=== PATIENT | female | born 1945 | race Caucasian/White ===

== ENCOUNTER → 2016-11-10 | Outpatient (CLI) | payer OTHER ==
--- NOTE | 2016-11-10 12:43 | REPMRS ---
Patient History The patient states she has not had a clinical breast exam in over a year. Patient is postmenopausal, has history of colorectal cancer at age 58, and has history of other cancer at age 38. Family history of colorectal cancer in father under age 50. Digital Woman Screen Mammo: November 10, 2016 - Exam #: [id number] Bilateral CC and MLO view(s) were taken. Technologist: Suellen Pretty, Technologist Prior study comparison: November 10, 2015, digital woman screen mammo performed at [facility]. October 25, 2014, digital woman screen mammo performed at [facility]. November 08, 2013, digital woman screen mammo performed at [facility]. FINDINGS: There are scattered fibroglandular densities. There has been no change in the appearance of the mammogram from the prior studies. There is a mild amount of scattered fibroglandular density which is fairly symmetric. There is no interval development of dominant mass, architectural distortion, or clustered microcalcification suggestive of malignancy. ASSESSMENT: BI-RADS/ACR category 1 mammogram. Negative. Recommendation Routine screening mammogram in 1 year (for women over age 40). This mammogram was interpreted with the aid of an FDA-approved computer-aided dectection system. Electronically Signed By: Noé Shields MD 11/10/16 [id number]
== END | disposition home or self-care (01) ==
LOC: M WHC 10:07
PROVIDERS: ATTEND Physician Assistant
DX: Z12.31 Encounter for screening mammogram for malignant neoplasm of breast (principal); Z78.0 Asymptomatic menopausal state; Z85.038 Personal history of other malignant neoplasm of large intestine

== ENCOUNTER → 2017-03-03 | Outpatient (REF) | payer OTHER ==
[2017-03-03 12:34] LABS: MEAN CORPUSCULAR HEMOGLOBIN 28.7 pg (27.0-33.0); MEAN CORPUSCULAR HGB CONC 31.9 g/dl (32.0-36.5); RED CELL DISTRIBUTION WIDTH 13.4 % (11.5-14.5); WHITE BLOOD COUNT 7.8 K/mm3 (4.0-10.0)
[2017-03-03 13:05] LABS: ALBUMIN 3.5 GM/DL (3.2-5.2); ALBUMIN/GLOBULIN RATIO 0.95 (1.00-1.93); ALKALINE PHOSPHATASE 87 U/L (45-117); ALT/SGPT 13 U/L (12-78); ANION GAP 8 MEQ/L (8-16); AST/SGOT 8 U/L (15-37); BILIRUBIN,TOTAL 0.3 MG/DL (0.2-1.0); BLOOD UREA NITROGEN 12 MG/DL (7-18); CALCIUM LEVEL 8.8 MG/DL (8.8-10.2); CARBON DIOXIDE LEVEL 30 MEQ/L (21-32); CHLORIDE LEVEL 104 MEQ/L (98-107); CHOLESTEROL LEVEL 181 MG/DL (<200); CREATININE FOR GFR 0.64 MG/DL (0.55-1.02); FREE T4 1.27 NG/DL (0.76-1.46); GLOMERULAR FILTRATION RATE > 60.0 (>39); GLUCOSE, FASTING 95 MG/DL (83-110); POTASSIUM SERUM 3.9 MEQ/L (3.5-5.1); SODIUM LEVEL 142 MEQ/L (136-145); TOTAL PROTEIN 7.2 GM/DL (6.4-8.2); TRIGLYCERIDES LEVEL 86 MG/DL (<150)
[2017-03-03 13:10] LABS: FOLATE > 24.0 NG/ML; VITAMIN B12 LEVEL 1005 PG/ML
== END ==
LOC: M SFHCADAM 08:21
PROVIDERS: ATTEND Physician Assistant
DX: I10 Essential (primary) hypertension (principal); K51.90 Ulcerative colitis, unspecified, without complications; E78.2 Mixed hyperlipidemia; E55.9 Vitamin D deficiency, unspecified; D52.0 Dietary folate deficiency anemia

== ENCOUNTER → 2017-07-23 | Outpatient (REF) | payer OTHER ==
[2017-07-23 17:28] LABS: BLOOD UREA NITROGEN 18 MG/DL (7-18); CREATININE FOR GFR 0.72 MG/DL (0.55-1.02); GLOMERULAR FILTRATION RATE > 60.0 (>39)
== END ==
LOC: M LABDRWAD 17:11 → M LAB REF 17:11
PROVIDERS: ATTEND Family Medicine
DX: I10 Essential (primary) hypertension (principal)

== ENCOUNTER → 2017-07-26 | Outpatient (CLI) | payer OTHER ==
[~2017-07-26] MED LIST: PROHANCE 279.3MG/ML 15ML VIAL (A9576) As Ordered ONE
--- NOTE | 2017-07-26 17:24 | REP ---
MR THORACIC SPINE WITHOUT AND WITH CONTRAST: HISTORY: Mid back pain. CONTRAST: ProHance 14 mL. A small central disc protrusion is present at the T6-7 level. There is minimal effacement of the thecal sac without spinal cord compression . The T6 neural foramina are patent. There is no other disc bulge or herniation. The remaining neural foramina are patent. The spinal cord is normal in signal intensity. Normal signal intensity is present in the thoracic vertebral bodies. A hemangioma is present in the L1 vertebral body. IMPRESSION: Small disc protrusion at the T6-7 level without spinal cord compression. Signed by Vidal Mijares MD 07/26/2017 05:27 P
== END ==
LOC: M RAD 13:42
PROVIDERS: ATTEND Physician Assistant
DX: M54.9 Dorsalgia, unspecified (principal)
CPT/HCPCS: 72157; A9576

== ENCOUNTER → 2017-11-15 | Outpatient (CLI) | payer OTHER | LOC: M WHC 11:50 | DX: Z12.31 Encounter for screening mammogram for malignant neoplasm of breast (principal) | CPT/HCPCS: 77067 ==

== ENCOUNTER → 2018-02-28 | Outpatient (REF) | payer OTHER ==
[2018-02-28 13:13] LABS: HEMATOCRIT 37.6 % (36.0-47.0); MEAN CORPUSCULAR HEMOGLOBIN 28.8 pg (27.0-33.0); MEAN CORPUSCULAR HGB CONC 31.9 g/dl (32.0-36.5); MEAN CORPUSCULAR VOLUME 90.4 fl (80.0-96.0); PLATELET COUNT, AUTOMATED 341 10^3/uL (150-450); RED BLOOD COUNT 4.16 10^6/uL (4.00-5.40); RED CELL DISTRIBUTION WIDTH 13.7 % (11.5-14.5); WHITE BLOOD COUNT 9.1 10^3/uL (4.0-10.0)
[2018-02-28 13:39] LABS: ALBUMIN 3.5 GM/DL (3.2-5.2); ALKALINE PHOSPHATASE 87 U/L (45-117); ALT/SGPT 20 U/L (12-78); ANION GAP 5 MEQ/L (8-16); AST/SGOT 13 U/L (7-37); BILIRUBIN,TOTAL 0.4 MG/DL (0.2-1.0); BLOOD UREA NITROGEN 16 MG/DL (7-18); CALCIUM LEVEL 9.5 MG/DL (8.8-10.2); CARBON DIOXIDE LEVEL 31 MEQ/L (21-32); CHLORIDE LEVEL 105 MEQ/L (98-107); CHOLESTEROL LEVEL 181 MG/DL (<200); CREATININE FOR GFR 0.68 MG/DL (0.55-1.30); GLOMERULAR FILTRATION RATE > 60.0 (>39); GLUCOSE, FASTING 91 MG/DL (70-100); HDL CHOLESTEROL 58 MG/DL (>40); LDL CHOLESTEROL 106.6 MG/DL (<100); NON-HDL-C 123 MG/DL; POTASSIUM SERUM 4.3 MEQ/L (3.5-5.1); SODIUM LEVEL 141 MEQ/L (136-145); TOTAL PROTEIN 7.4 GM/DL (6.4-8.2); TRIGLYCERIDES LEVEL 82 MG/DL (<150)
== END ==
LOC: M SFHCADAM 07:53
DX: E78.2 Mixed hyperlipidemia (principal); I10 Essential (primary) hypertension; M15.9 Polyosteoarthritis, unspecified
CPT/HCPCS: 80053

== ENCOUNTER → 2018-11-02 | Outpatient (CLI) | payer MEDICARE, OTHER ==
--- NOTE | 2018-11-02 13:19 | REPMRS ---
Patient History The patient states she had a clinical breast exam in 02/2018. Patient has history of colorectal cancer at age 58 and has history of cervical cancer at age 38. Family history of colorectal cancer under age 50 in father. No Hormone Replacement Therapy Digital Woman Screen Mammo: November 02, 2018 - Exam #: [id number] Bilateral CC and MLO view(s) were taken. Technologist: Suellen Pretty, Technologist Prior study comparison: November 15, 2017, digital woman screen mammo performed at [facility]. November 10, 2016, digital woman screen mammo performed at [facility]. November 10, 2015, digital woman screen mammo performed at [facility]. FINDINGS: There are scattered fibroglandular densities. There has been no change in the appearance of the mammogram from the prior studies. There is a mild amount of scattered fibroglandular density which is fairly symmetric. There is no interval development of dominant mass, architectural distortion, or clustered microcalcification suggestive of malignancy. 3-D tomosynthesis shows no additional findings. Assessment: BI-RADS/ACR category 1 mammogram. Negative. Recommendation Routine screening mammogram of both breasts in 1 year (for women over age 40). This patient's Lifetime Breast Cancer RIsk is estimated at 3.4 %. This mammogram was interpreted with the aid of an FDA-approved computer-aided dectection system. Electronically Signed By: Noé Shields MD 11/02/18 [id number]
== END ==
LOC: M WHC 10:39
PROVIDERS: ATTEND Physician Assistant
DX: Z12.31 Encounter for screening mammogram for malignant neoplasm of breast (principal); Z85.048 Personal history of other malignant neoplasm of rectum, rectosigmoid junction, and anus; Z85.41 Personal history of malignant neoplasm of cervix uteri; Z80.0 Family history of malignant neoplasm of digestive organs

== ENCOUNTER → 2019-02-15 | Outpatient (REF) | payer MEDICARE, OTHER ==
[2019-02-15 12:58] LABS: HEMATOCRIT 37.9 % (36.0-47.0); MEAN CORPUSCULAR HEMOGLOBIN 28.7 pg (27.0-33.0); MEAN CORPUSCULAR HGB CONC 31.7 g/dl (32.0-36.5); MEAN CORPUSCULAR VOLUME 90.7 fl (80.0-96.0); PLATELET COUNT, AUTOMATED 379 10^3/uL (150-450); RED BLOOD COUNT 4.18 10^6/uL (4.00-5.40); WHITE BLOOD COUNT 6.2 10^3/uL (4.0-10.0)
[2019-02-15 13:24] LABS: FOLATE > 24.0 NG/ML; VITAMIN B12 LEVEL 1509 PG/ML
[2019-02-15 13:31] LABS: ALBUMIN 3.4 GM/DL (3.2-5.2); ALT/SGPT 16 U/L (12-78); BILIRUBIN,TOTAL 0.2 MG/DL (0.2-1.0); BLOOD UREA NITROGEN 15 MG/DL (7-18); CALCIUM LEVEL 9.3 MG/DL (8.8-10.2); CARBON DIOXIDE LEVEL 30 MEQ/L (21-32); CHLORIDE LEVEL 105 MEQ/L (98-107); CHOLESTEROL LEVEL 184 MG/DL (<200); CHOLESTEROL RISK RATIO 3.607 (<5); CREATININE FOR GFR 0.67 MG/DL (0.55-1.30); FREE T4 1.36 NG/DL (0.76-1.46); GLOMERULAR FILTRATION RATE > 60.0 (>39); GLUCOSE, FASTING 85 MG/DL (70-100); HDL CHOLESTEROL 51 MG/DL (>40); LDL CHOLESTEROL 115 MG/DL (<100); NON-HDL-C 133 MG/DL; POTASSIUM SERUM 4.1 MEQ/L (3.5-5.1); SODIUM LEVEL 140 MEQ/L (136-145); TOTAL PROTEIN 7.3 GM/DL (6.4-8.2); TRIGLYCERIDES LEVEL 88 MG/DL (<150)
== END ==
LOC: M SFHCADAM 08:22
PROVIDERS: ATTEND Physician Assistant
DX: K21.9 Gastro-esophageal reflux disease without esophagitis (principal); E78.2 Mixed hyperlipidemia; I10 Essential (primary) hypertension; D52.8 Other folate deficiency anemias

== ENCOUNTER 2019-08-30 15:17 | Emergency (ER) | payer MEDICARE ==
[~2019-08-30] VITALS: Ht 162.6 cm; Wt 76.5 kg
[2019-08-30] MEDS ORDERED: FOLI1TAB11 (15:25)
[2019-08-30] MEDS ORDERED: PRAV10TA3 (15:25)
[2019-08-30 16:29] LABS: BASO # 0.1 10^3/uL (0.0-0.2); BASO % 0.7 % (0.0-1.0); EOS # 0.3 10^3/uL (0.0-0.5); EOS % 3.8 % (0.0-3.0); HEMOGLOBIN 12.4 g/dl (12.0-15.5); LYMPH # 2.2 10^3/uL (1.5-5.0); LYMPH % 25.9 % (24.0-44.0); MEAN CORPUSCULAR HEMOGLOBIN 28.8 pg (27.0-33.0); MONO # 0.7 10^3/uL (0.0-0.8); MONO % 7.9 % (0.0-5.0); NEUTROPHILS # 5.3 10^3/uL (1.5-8.5); NEUTROPHILS % 61.5 % (36.0-66.0); PLATELET COUNT, AUTOMATED 360 10^3/uL (150-450); WHITE BLOOD COUNT 8.6 10^3/uL (4.0-10.0)
[2019-08-30] MEDS ORDERED: NS 1,000 ML IV SCH (16:45)
[2019-08-30 17:08] LABS: ALBUMIN 3.6 GM/DL (3.2-5.2); ALT/SGPT 19 U/L (12-78); BILIRUBIN,TOTAL 0.3 MG/DL (0.2-1.0); BLOOD UREA NITROGEN 16 MG/DL (7-18); CALCIUM LEVEL 9.9 MG/DL (8.8-10.2); CARBON DIOXIDE LEVEL 30 MEQ/L (21-32); CHLORIDE LEVEL 104 MEQ/L (98-107); CK-MB VALUE MASS < 1.0 NG/ML (<3.6); CPK CREATINE PHOSPHOKINASE 31 U/L (26-192); CREATININE FOR GFR 0.65 MG/DL (0.55-1.30); GLOMERULAR FILTRATION RATE > 60.0 (>39); GLUCOSE, FASTING 87 MG/DL (70-100); MAGNESIUM LEVEL 1.8 MG/DL (1.8-2.4); MB/CK RELATIVE INDEX 3.23 (< OR =4); POTASSIUM SERUM 4.3 MEQ/L (3.5-5.1); SODIUM LEVEL 141 MEQ/L (136-145); TOTAL PROTEIN 7.5 GM/DL (6.4-8.2); TROPONIN I < 0.02 NG/ML (< 0.10)
--- NOTE | 2019-08-30 17:09 | REP ---
CT brain: 08/30/2019. Indication: Dizziness. Comparison: None. Technique: Unenhanced axial CT images of the brain were obtained from skull base to vertex. Findings: There is no acute intracranial hemorrhage, acute cortical infarction, mass effect or hydrocephalous. Impression: No acute intracranial process. Electronically Signed by Paul White DO 08/30/2019 05:01 P
--- NOTE | 2019-08-30 17:17 | REP ---
Two-view chest: 08/30/2019. New indication: Dizziness. Comparison: 04/03/2014. Findings: There is no air space consolidation, pleural effusion or pneumothorax. Chronic right rib deformities are noted. The cardiomediastinal silhouette is unremarkable. Impression: No acute cardiopulmonary process. Electronically Signed by Paul White DO 08/30/2019 05:09 P
--- NOTE | 2019-08-30 18:36 | ECGEPIP ---
[facility] - ED Test Date: 2019-08-30 Pat Name: KEYLA ROA Department: Room: - Gender: Female Dental Hygienist: MICHI : 1945 Requested By: REJI Carl Order Number: [id number] Reading MD: Jodi Olsen Measurements Intervals [place] Rate: 88 P: 66 MI: 205 QRS: 40 QRSD: 98 T: 60 QT: 353 QTc: 429 Interpretive Statements SINUS RHYTHM NO PRIOR Electronically Signed on 08-30-2019 18:35:49 EST by Jodi Olsen
[2019-08-30 19:18] VITALS: BP 165/82
== END 2019-08-30 19:38 | disposition home or self-care (01) ==
LOC: M ED 15:17
DX: R25.2 Cramp and spasm (principal); R42 Dizziness and giddiness; E78.00 Pure hypercholesterolemia, unspecified; Z88.4 Allergy status to anesthetic agent; Z88.8 Allergy status to other drugs, medicaments and biological substances; Z88.1 Allergy status to other antibiotic agents; Z79.899 Other long term (current) drug therapy

== ENCOUNTER → 2020-03-10 | Outpatient (REF) | payer MEDICARE ==
[~2020-03-10] MED LIST changes: +FOLI1TAB11; +PRAV10TA3; -PROHANCE 279.3MG/ML 15ML VIAL (A9576) As Ordered ONE
[2020-03-10 12:45] LABS: HEMATOCRIT 40.2 % (36.0-47.0); HEMOGLOBIN 12.6 g/dl (12.0-15.5); MEAN CORPUSCULAR HEMOGLOBIN 28.6 pg (27.0-33.0); MEAN CORPUSCULAR HGB CONC 31.3 g/dl (32.0-36.5); MEAN CORPUSCULAR VOLUME 91.4 fl (80.0-96.0); PLATELET COUNT, AUTOMATED 389 10^3/uL (150-450); WHITE BLOOD COUNT 7.3 10^3/uL (4.0-10.0)
[2020-03-10 12:51] LABS: ALBUMIN 3.7 GM/DL (3.2-5.2); ALT/SGPT 19 U/L (12-78); BILIRUBIN,TOTAL 0.4 MG/DL (0.2-1.0); BLOOD UREA NITROGEN 10 MG/DL (7-18); CARBON DIOXIDE LEVEL 31 MEQ/L (21-32); CHLORIDE LEVEL 105 MEQ/L (98-107); CHOLESTEROL LEVEL 196 MG/DL (<200); CHOLESTEROL RISK RATIO 3.322 (<5); CREATININE FOR GFR 0.69 MG/DL (0.55-1.30); GLOMERULAR FILTRATION RATE > 60.0 (>39); GLUCOSE, FASTING 88 MG/DL (70-100); HDL CHOLESTEROL 59 MG/DL (>40); LDL CHOLESTEROL 117 MG/DL (<100); NON-HDL-C 137 MG/DL; POTASSIUM SERUM 4.8 MEQ/L (3.5-5.1); SODIUM LEVEL 143 MEQ/L (136-145); TOTAL PROTEIN 7.8 GM/DL (6.4-8.2); TRIGLYCERIDES LEVEL 101 MG/DL (<150)
[2020-03-10 13:10] LABS: MALB URINE SIEMENS 13.9 MG/L; MAU/CREAT RATIO 8.7 MCG/MG (0.0-30.0)
[2020-03-11 10:04] LABS: FOLATE > 24.0 NG/ML; VITAMIN B12 LEVEL 1563 PG/ML
== END ==
LOC: M SFHCADAM 08:21
PROVIDERS: ATTEND Physician Assistant
DX: E78.2 Mixed hyperlipidemia (principal); I10 Essential (primary) hypertension; K21.9 Gastro-esophageal reflux disease without esophagitis; K51.90 Ulcerative colitis, unspecified, without complications

== ENCOUNTER → 2020-08-27 | Outpatient (REF) | payer MEDICARE ==
[2020-08-27 12:49] LABS: HEMATOCRIT 39.6 % (36.0-47.0); HEMOGLOBIN 12.2 g/dl (12.0-15.5); MEAN CORPUSCULAR HEMOGLOBIN 28.4 pg (27.0-33.0); MEAN CORPUSCULAR HGB CONC 30.8 g/dl (32.0-36.5); MEAN CORPUSCULAR VOLUME 92.3 fl (80.0-96.0); PLATELET COUNT, AUTOMATED 371 10^3/uL (150-450); RED BLOOD COUNT 4.29 10^6/uL (4.00-5.40); WHITE BLOOD COUNT 7.7 10^3/uL (4.0-10.0)
[2020-08-27 13:20] LABS: ALBUMIN 3.8 GM/DL (3.2-5.2); ALT/SGPT 21 U/L (12-78); BILIRUBIN,TOTAL 0.4 MG/DL (0.2-1.0); BLOOD UREA NITROGEN 15 MG/DL (7-18); CALCIUM LEVEL 9.9 MG/DL (8.8-10.2); CARBON DIOXIDE LEVEL 31 MEQ/L (21-32); CHLORIDE LEVEL 103 MEQ/L (98-107); CHOLESTEROL LEVEL 194 MG/DL (<200); CHOLESTEROL RISK RATIO 3.079 (<5); CREATININE FOR GFR 0.67 MG/DL (0.55-1.30); FREE T4 1.33 NG/DL (0.76-1.46); GLOMERULAR FILTRATION RATE > 60.0 (>39); GLUCOSE, FASTING 81 MG/DL (70-100); HDL CHOLESTEROL 63 MG/DL (>40); LDL CHOLESTEROL 114 MG/DL (<100); NON-HDL-C 131 MG/DL; POTASSIUM SERUM 4.8 MEQ/L (3.5-5.1); SODIUM LEVEL 140 MEQ/L (136-145); TOTAL PROTEIN 7.4 GM/DL (6.4-8.2); TRIGLYCERIDES LEVEL 83 MG/DL (<150)
== END ==
LOC: M SFHCADAM 08:16
PROVIDERS: ATTEND Physician Assistant
DX: I10 Essential (primary) hypertension (principal); E78.2 Mixed hyperlipidemia; M15.9 Polyosteoarthritis, unspecified; K21.9 Gastro-esophageal reflux disease without esophagitis

== ENCOUNTER → 2021-08-19 | Outpatient (REF) | payer MEDICARE ==
[2021-08-19 13:23] LABS: HEMATOCRIT 42.1 % (36.0-47.0); HEMOGLOBIN 13.1 g/dl (12.0-15.5); MEAN CORPUSCULAR HGB CONC 31.1 g/dl (32.0-36.5); MEAN CORPUSCULAR VOLUME 93.1 fl (80.0-96.0); PLATELET COUNT, AUTOMATED 399 10^3/uL (150-450); RED BLOOD COUNT 4.52 10^6/uL (4.00-5.40); WHITE BLOOD COUNT 8.6 10^3/uL (4.0-10.0)
[2021-08-19 14:00] LABS: ALBUMIN 3.7 GM/DL (3.2-5.2); ALT/SGPT 17 U/L (12-78); BILIRUBIN,TOTAL 0.4 MG/DL (0.2-1.0); BLOOD UREA NITROGEN 16 MG/DL (7-18); CALCIUM LEVEL 10.1 MG/DL (8.8-10.2); CARBON DIOXIDE LEVEL 31 MEQ/L (21-32); CHLORIDE LEVEL 103 MEQ/L (98-107); CHOLESTEROL LEVEL 223 MG/DL (<200); CREATININE FOR GFR 0.64 MG/DL (0.55-1.30); FREE T4 1.28 NG/DL (0.76-1.46); GLOMERULAR FILTRATION RATE > 60.0 (>39); GLUCOSE, FASTING 107 MG/DL (70-100); HDL CHOLESTEROL 65 MG/DL (>40); LDL CHOLESTEROL 138 MG/DL (<100); NON-HDL-C 158 MG/DL; POTASSIUM SERUM 4.3 MEQ/L (3.5-5.1); SODIUM LEVEL 140 MEQ/L (136-145); TOTAL PROTEIN 7.4 GM/DL (6.4-8.2); TRIGLYCERIDES LEVEL 99 MG/DL (<150)
[2021-08-19 14:02] LABS: TOTAL 25(OH) VITAMIN D 57.3 NG/ML (30.0-100.0)
[2021-08-19 14:03] LABS: FOLATE > 24.0 NG/ML; VITAMIN B12 LEVEL 1369 PG/ML
== END ==
LOC: M SFHCADAM 08:30
PROVIDERS: ATTEND Physician Assistant
DX: M54.6 Pain in thoracic spine (principal); I10 Essential (primary) hypertension; E55.9 Vitamin D deficiency, unspecified; K21.9 Gastro-esophageal reflux disease without esophagitis; E78.2 Mixed hyperlipidemia; K51.90 Ulcerative colitis, unspecified, without complications

== ENCOUNTER 2022-04-14 18:50 | Inpatient (IN) | payer MEDICARE ==
[~2022-04-14] VITALS: Ht 162.6 cm; Wt 64.3 kg
[2022-04-14] MEDS ORDERED: ISOVUE-370 76% 100ML VIAL As Ordered ONE (20:04)
[2022-04-14 20:14] LABS: BASO % 0.4 % (0.0-1.0); EOS # 0.3 10^3/uL (0.0-0.5); EOS % 2.9 % (0.0-3.0); HEMATOCRIT 41.5 % (36.0-47.0); HEMOGLOBIN 13.3 g/dl (12.0-15.5); LYMPH # 1.8 10^3/uL (1.5-5.0); LYMPH % 15.6 % (24.0-44.0); MEAN CORPUSCULAR HEMOGLOBIN 29.5 pg (27.0-33.0); MONO # 0.8 10^3/uL (0.0-0.8); MONO % 6.6 % (2.0-8.0); NEUTROPHILS # 8.5 10^3/uL (1.5-8.5); NEUTROPHILS % 74.1 % (36.0-66.0); PLATELET COUNT, AUTOMATED 361 10^3/uL (150-450); RED BLOOD COUNT 4.51 10^6/uL (4.00-5.40); WHITE BLOOD COUNT 11.4 10^3/uL (4.0-10.0)
[2022-04-14 20:26] LABS: PARTIAL THROMBOPLASTIN TIME 30.4 SECONDS (25.9-37.0)
[2022-04-14 20:32] LABS: INR 0.92; PROTHROMBIN TIME 12.8 SECONDS (12.7-14.5)
[2022-04-14 20:45] LABS: CK-MB VALUE MASS < 1.0 NG/ML (<3.6); CPK CREATINE PHOSPHOKINASE 69 U/L (26-192); MB/CK RELATIVE INDEX 1.45 (< OR =4)
[2022-04-14] MEDS ORDERED: ASPIRIN 81 MG CHEW TABLET PO ONE (21:20)
[2022-04-14 22:52] LABS: RSV AMPLIFICATION NEGATIVE (NEGATIVE)
[2022-04-14] MEDS ORDERED: NS 1,000 ML IV SCH (23:10)
[2022-04-15] MEDS ORDERED: PRAV10TA4 PO ×2 (01:11→11:48)
[2022-04-15] MEDS ORDERED: FISH1000 PO (01:11)
[2022-04-15] MEDS ORDERED: CALTTAB6 PO (01:11)
[2022-04-15] MEDS ORDERED: FOLI1TAB11 PO (01:11)
[2022-04-15] MEDS ORDERED: ACET-897 PO (01:11)
[2022-04-15] MEDS ORDERED: HOME MED LIST COMPLETE! XX SCH (01:15)
[2022-04-15 01:34] VITALS: BP 169/77
[2022-04-15 02:09] VITALS: BP 169/77
[2022-04-15 04:00] VITALS: BP 127/65
[2022-04-15 05:15] LABS: HEMATOCRIT 40.1 % (36.0-47.0); HEMOGLOBIN 12.8 g/dl (12.0-15.5); MEAN CORPUSCULAR HEMOGLOBIN 28.7 pg (27.0-33.0); MEAN CORPUSCULAR HGB CONC 31.9 g/dl (32.0-36.5); MEAN CORPUSCULAR VOLUME 89.9 fl (80.0-96.0); PLATELET COUNT, AUTOMATED 357 10^3/uL (150-450); RED BLOOD COUNT 4.46 10^6/uL (4.00-5.40); WHITE BLOOD COUNT 10.7 10^3/uL (4.0-10.0)
[2022-04-15 05:40] LABS: ALBUMIN 3.4 GM/DL (3.2-5.2); ALT/SGPT 10 U/L (12-78); BILIRUBIN,TOTAL 0.4 MG/DL (0.2-1.0); BLOOD UREA NITROGEN 13 MG/DL (7-18); CALCIUM LEVEL 9.4 MG/DL (8.8-10.2); CARBON DIOXIDE LEVEL 26 MEQ/L (21-32); CHLORIDE LEVEL 104 MEQ/L (98-107); CREATININE FOR GFR 0.59 MG/DL (0.55-1.30); GLOMERULAR FILTRATION RATE > 60.0 (>39); GLUCOSE, FASTING 96 MG/DL (70-100); SODIUM LEVEL 139 MEQ/L (136-145); TOTAL PROTEIN 7.1 GM/DL (6.4-8.2)
[2022-04-15 06:00] VITALS: BP 158/73
[2022-04-15] MEDS: HEPARIN SOD (PORCINE) 5000UNITS/ML 1ML VIAL/SYRINGE SC SCH ×2 (06:19→14:00)
[2022-04-15 08:00] VITALS: BP 134/68
[2022-04-15] MEDS ORDERED: ASPIRIN 81 MG CHEW TABLET PO SCH (09:00)
[2022-04-15] MEDS ORDERED: ASPI81CH8 PO (11:48)
[2022-04-15 12:00] VITALS: BP 137/82
[2022-04-15 13:29] LABS: THYROID STIMULATING HORMONE 0.879 uIU/ML (0.358-3.740)
[2022-04-15 13:34] LABS: VITAMIN B12 LEVEL 1455 PG/ML (247-911)
[2022-04-15 13:36] LABS: FOLATE > 24.0 NG/ML (>5.4)
[2022-04-15] MEDS ORDERED: ATORVASTATIN 20 MG TAB PO SCH (21:00)
== END 2022-04-15 14:47 | disposition home or self-care (01) | DRG 69 ==
LOC: M ED 18:50 → M ED INP 23:07 → M PCU 04-15 01:20
PROVIDERS: ADMIT Family Medicine; ATTEND Internal Medicine Nephrology
DX: G45.9 Transient cerebral ischemic attack, unspecified (principal); R47.1 Dysarthria and anarthria; I27.20 Pulmonary hypertension, unspecified; R91.8 Other nonspecific abnormal finding of lung field; E78.5 Hyperlipidemia, unspecified; Z87.891 Personal history of nicotine dependence; Z79.899 Other long term (current) drug therapy; Z88.8 Allergy status to other drugs, medicaments and biological substances; Z88.1 Allergy status to other antibiotic agents; Z88.4 Allergy status to anesthetic agent

== ENCOUNTER 2022-04-21 22:20 | Emergency (ER) | payer MEDICARE ==
[~2022-04-21] VITALS: Ht 162.6 cm; Wt 74.1 kg
[~2022-04-21 22:20] MED LIST changes: +ACET-897 PO; +ASPI81CH8 PO; +CALTTAB6 PO; +FISH1000 PO; +FOLI1TAB11 PO; +PRAV10TA4 PO
[2022-04-22 01:37] LABS: BASO % 0.4 % (0.0-1.0); EOS # 0.2 10^3/uL (0.0-0.5); EOS % 2.1 % (0.0-3.0); HEMATOCRIT 38.5 % (36.0-47.0); HEMOGLOBIN 12.4 g/dl (12.0-15.5); LYMPH # 1.5 10^3/uL (1.5-5.0); LYMPH % 13.8 % (24.0-44.0); MEAN CORPUSCULAR HEMOGLOBIN 29.4 pg (27.0-33.0); MEAN CORPUSCULAR HGB CONC 32.2 g/dl (32.0-36.5); MEAN CORPUSCULAR VOLUME 91.2 fl (80.0-96.0); MONO # 0.8 10^3/uL (0.0-0.8); MONO % 7.3 % (2.0-8.0); NEUTROPHILS # 8.5 10^3/uL (1.5-8.5); PLATELET COUNT, AUTOMATED 357 10^3/uL (150-450); RED BLOOD COUNT 4.22 10^6/uL (4.00-5.40); WHITE BLOOD COUNT 11.2 10^3/uL (4.0-10.0)
[2022-04-22 02:11] LABS: ALBUMIN 3.4 GM/DL (3.2-5.2); ALT/SGPT 11 U/L (12-78); BILIRUBIN,TOTAL 0.3 MG/DL (0.2-1.0); BLOOD UREA NITROGEN 14 MG/DL (7-18); CALCIUM LEVEL 9.8 MG/DL (8.8-10.2); CARBON DIOXIDE LEVEL 28 MEQ/L (21-32); CHLORIDE LEVEL 100 MEQ/L (98-107); CREATININE FOR GFR 0.63 MG/DL (0.55-1.30); GLOMERULAR FILTRATION RATE > 60.0 (>39); GLUCOSE, FASTING 112 MG/DL (70-100); LIPASE 107 U/L (73-393); POTASSIUM SERUM 3.6 MEQ/L (3.5-5.1); SODIUM LEVEL 135 MEQ/L (136-145); TOTAL PROTEIN 7.1 GM/DL (6.4-8.2)
[2022-04-22] MEDS ORDERED: NITROFURANTOIN (MACROBID) 100 MG CAP PO ONE (02:35)
[2022-04-22] MEDS ORDERED: METOPROLOL TART 25 MG TABLET PO ONE (02:35)
[2022-04-22] MEDS ORDERED: MACR100C43 PO (02:40)
[2022-04-22] MEDS ORDERED: METO1TAB87 PO (02:40)
[2022-04-22 03:04] VITALS: BP 144/78
[2022-04-22 03:17] VITALS: BP 132/73
== END 2022-04-22 03:27 | disposition home or self-care (01) ==
LOC: M ED 22:20
DX: I10 Essential (primary) hypertension (principal); N39.0 Urinary tract infection, site not specified; Z88.8 Allergy status to other drugs, medicaments and biological substances; Z79.82 Long term (current) use of aspirin; Z79.899 Other long term (current) drug therapy

== ENCOUNTER 2022-04-29 12:30 | Emergency (ER) | payer MEDICARE ==
[~2022-04-29] VITALS: Ht 162.6 cm; Wt 70.9 kg
[~2022-04-29 12:30] MED LIST changes: +MACR100C43 PO; +METO1TAB87 PO
[2022-04-29 16:12] LABS: BASO # 0.1 10^3/uL (0.0-0.2); BASO % 0.5 % (0.0-1.0); EOS # 0.3 10^3/uL (0.0-0.5); EOS % 2.9 % (0.0-3.0); HEMATOCRIT 39.8 % (36.0-47.0); HEMOGLOBIN 12.8 g/dl (12.0-15.5); LYMPH # 2.1 10^3/uL (1.5-5.0); LYMPH % 20.8 % (24.0-44.0); MEAN CORPUSCULAR HEMOGLOBIN 29.4 pg (27.0-33.0); MEAN CORPUSCULAR HGB CONC 32.2 g/dl (32.0-36.5); MEAN CORPUSCULAR VOLUME 91.3 fl (80.0-96.0); MONO # 0.7 10^3/uL (0.0-0.8); NEUTROPHILS # 6.9 10^3/uL (1.5-8.5); NEUTROPHILS % 68.4 % (36.0-66.0); PLATELET COUNT, AUTOMATED 401 10^3/uL (150-450); RED BLOOD COUNT 4.36 10^6/uL (4.00-5.40); WHITE BLOOD COUNT 10.1 10^3/uL (4.0-10.0)
[2022-04-29 16:42] LABS: ALBUMIN 3.5 GM/DL (3.2-5.2); ALT/SGPT 20 U/L (12-78); BILIRUBIN,TOTAL 0.3 MG/DL (0.2-1.0); BLOOD UREA NITROGEN 11 MG/DL (7-18); CARBON DIOXIDE LEVEL 26 MEQ/L (21-32); CHLORIDE LEVEL 103 MEQ/L (98-107); CREATININE FOR GFR 0.55 MG/DL (0.55-1.30); GLOMERULAR FILTRATION RATE > 60.0 (>39); GLUCOSE, FASTING 87 MG/DL (70-100); POTASSIUM SERUM 4.5 MEQ/L (3.5-5.1); SODIUM LEVEL 138 MEQ/L (136-145); TOTAL PROTEIN 7.1 GM/DL (6.4-8.2)
[2022-04-29] MEDS ORDERED: PROHANCE 279.3MG/ML 15ML VIAL As Ordered ONE (22:24)
[2022-04-30 00:30] VITALS: BP 149/79
== END 2022-04-30 02:08 | disposition home or self-care (01) ==
LOC: M ED 12:30
DX: R42 Dizziness and giddiness (principal); E78.5 Hyperlipidemia, unspecified; Z88.1 Allergy status to other antibiotic agents; Z88.4 Allergy status to anesthetic agent; Z88.8 Allergy status to other drugs, medicaments and biological substances; Z79.899 Other long term (current) drug therapy; Z79.82 Long term (current) use of aspirin
CPT/HCPCS: 36415; 70450; 70543; 70551; 80053; 81001; 85025; 93005; 99284; A9576

== ENCOUNTER → 2022-05-14 | Outpatient (CLI) | payer MEDICARE ==
[~2022-05-14] MED LIST changes: +ISOVUE-370 76% 25ML SYRINGE As Ordered ONE
== END ==
LOC: M RAD 16:56
PROVIDERS: ATTEND Physician Assistant
DX: R91.8 Other nonspecific abnormal finding of lung field (principal); R06.3 Periodic breathing; Z87.891 Personal history of nicotine dependence; J47.9 Bronchiectasis, uncomplicated
CPT/HCPCS: 71260; Q9967

== ENCOUNTER → 2022-06-08 | Outpatient (CLI) | payer MEDICARE ==
[~2022-06-08] MED LIST changes: -ISOVUE-370 76% 25ML SYRINGE As Ordered ONE
[2022-06-08 11:26] LABS: BLOOD UREA NITROGEN 13 MG/DL (7-18); CREATININE FOR GFR 0.61 MG/DL (0.55-1.30); GLOMERULAR FILTRATION RATE > 60.0 (>39)
== END ==
LOC: M LAB 09:47
PROVIDERS: ATTEND Physician Assistant Medical
DX: R22.1 Localized swelling, mass and lump, neck (principal)

== ENCOUNTER → 2022-06-10 | Outpatient (CLI) | payer MEDICARE ==
[~2022-06-10] MED LIST changes: +ISOVUE-370 76% 25ML SYRINGE As Ordered ONE
== END ==
LOC: M RAD 15:01
PROVIDERS: ATTEND Otolaryngology
DX: R22.1 Localized swelling, mass and lump, neck (principal)
CPT/HCPCS: 70491; Q9967

== ENCOUNTER → 2022-08-24 | Outpatient (REF) | payer MEDICARE ==
[~2022-08-24] MED LIST changes: -ISOVUE-370 76% 25ML SYRINGE As Ordered ONE
[2022-08-24 14:15] LABS: HEMATOCRIT 40.8 % (36.0-47.0); HEMOGLOBIN 12.6 g/dl (12.0-15.5); MEAN CORPUSCULAR HGB CONC 30.9 g/dl (32.0-36.5); PLATELET COUNT, AUTOMATED 403 10^3/uL (150-450); RED BLOOD COUNT 4.34 10^6/uL (4.00-5.40)
[2022-08-24 15:54] LABS: ALBUMIN 3.5 GM/DL (3.2-5.2); ALT/SGPT 16 U/L (12-78); BILIRUBIN,TOTAL 0.3 MG/DL (0.2-1.0); BLOOD UREA NITROGEN 15 MG/DL (7-18); CALCIUM LEVEL 9.9 MG/DL (8.8-10.2); CARBON DIOXIDE LEVEL 32 MEQ/L (21-32); CHLORIDE LEVEL 102 MEQ/L (98-107); CREATININE FOR GFR 0.69 MG/DL (0.55-1.30); FREE T4 1.35 NG/DL (0.76-1.46); GLOMERULAR FILTRATION RATE > 60.0 (>39); GLUCOSE, FASTING 86 MG/DL (70-100); POTASSIUM SERUM 4.9 MEQ/L (3.5-5.1); SODIUM LEVEL 141 MEQ/L (136-145); THYROID STIMULATING HORMONE 0.717 uIU/ML (0.358-3.740); TOTAL PROTEIN 7.2 GM/DL (6.4-8.2)
[2022-08-24 20:08] LABS: HEMOGLOBIN A1c 5.4 %
== END ==
LOC: M SFHCADAM 08:33
PROVIDERS: ATTEND Physician Assistant
DX: I10 Essential (primary) hypertension (principal); K21.9 Gastro-esophageal reflux disease without esophagitis; E78.2 Mixed hyperlipidemia; K51.90 Ulcerative colitis, unspecified, without complications; K59.00 Constipation, unspecified

== ENCOUNTER → 2022-09-30 | Outpatient (REF) | payer MEDICARE ==
[2022-09-30 14:46] LABS: BLOOD UREA NITROGEN 18 MG/DL (9-23); CALCIUM LEVEL 10.6 MG/DL (8.3-10.6); CARBON DIOXIDE LEVEL 27 MMOL/L (20-31); CHLORIDE LEVEL 101 MMOL/L (98-107); CREATININE FOR GFR 0.66 MG/DL (0.55-1.30); GLOMERULAR FILTRATION RATE > 60.0 (>39); GLUCOSE, FASTING 96 MG/DL (74-106); POTASSIUM SERUM 5.4 MMOL/L (3.5-5.1); SODIUM LEVEL 140 MMOL/L (136-145)
== END ==
LOC: M SFHCADAM 11:45
PROVIDERS: ATTEND Physician Assistant
DX: R91.1 Solitary pulmonary nodule (principal)

== ENCOUNTER → 2022-12-08 | Outpatient (REF) | payer MEDICARE ==
[2022-12-08 15:42] LABS: BLOOD UREA NITROGEN 16 MG/DL (9-23); CREATININE FOR GFR 0.61 MG/DL (0.55-1.30); GLOMERULAR FILTRATION RATE > 60.0 (>39)
== END ==
LOC: M LABDRWAD 14:05
PROVIDERS: ATTEND Physician Assistant Medical
DX: R91.1 Solitary pulmonary nodule (principal)

== ENCOUNTER → 2022-12-15 | Outpatient (CLI) | payer MEDICARE ==
[~2022-12-15] MED LIST changes: +ISOVUE-370 76% 100ML VIAL As Ordered ONE
== END ==
LOC: M RAD 12:16
PROVIDERS: ATTEND Physician Assistant
DX: R91.8 Other nonspecific abnormal finding of lung field (principal)
CPT/HCPCS: 71260; Q9967

== ENCOUNTER → 2023-03-04 | Outpatient (REF) | payer MEDICARE ==
[~2023-03-04] MED LIST changes: -ISOVUE-370 76% 100ML VIAL As Ordered ONE
[2023-03-04 16:32] LABS: ALBUMIN 3.5 G/DL (3.2-5.2); ALKALINE PHOSPHATASE 69 U/L (46-116); ALT/SGPT 13 U/L (7.0-40); AST/SGOT 10 U/L (<34); BILIRUBIN,TOTAL 0.4 MG/DL (0.3-1.2); BLOOD UREA NITROGEN 16 MG/DL (9-23); CALCIUM LEVEL 9.9 MG/DL (8.3-10.6); CARBON DIOXIDE LEVEL 30 MMOL/L (20-31); CHLORIDE LEVEL 102 MMOL/L (98-107); CHOLESTEROL LEVEL 169 MG/DL (<200); GLOMERULAR FILTRATION RATE > 60.0 (>39); GLUCOSE, FASTING 91 MG/DL (74-106); HDL CHOLESTEROL 51.2 MG/DL (>40); LDL CHOLESTEROL 97.6 MG/DL (<100); NON-HDL-C 117.8 MG/DL; POTASSIUM SERUM 4.1 MMOL/L (3.5-5.1); SODIUM LEVEL 139 MMOL/L (136-145); TOTAL PROTEIN 6.7 G/DL (5.7-8.2); TRIGLYCERIDES LEVEL 101 MG/DL (<150)
== END ==
LOC: M SFHCADAM 13:06
PROVIDERS: ATTEND Physician Assistant
DX: E78.2 Mixed hyperlipidemia (principal)

== ENCOUNTER → 2023-10-26 | Outpatient (CLI) | payer MEDICARE | LOC: M ADAMS 14:08 | PROVIDERS: ATTEND Physician Assistant | DX: R06.02 Shortness of breath (principal); R00.0 Tachycardia, unspecified ==

== ENCOUNTER → 2023-10-26 | Outpatient (REF) | payer MEDICARE ==
[2023-10-26 17:47] LABS: BASO # 0.1 10^3/uL (0.0-0.2); BASO % 0.6 % (0.0-1.0); EOS # 0.2 10^3/uL (0.0-0.5); EOS % 2.8 % (0.0-3.0); HEMATOCRIT 40.7 % (36.0-47.0); HEMOGLOBIN 12.8 g/dl (12.0-15.5); LYMPH # 1.9 10^3/uL (1.5-5.0); MEAN CORPUSCULAR HGB CONC 31.4 g/dl (32.0-36.5); MEAN CORPUSCULAR VOLUME 95.5 fl (80.0-96.0); MONO # 0.8 10^3/uL (0.0-0.8); MONO % 9.3 % (2.0-8.0); NEUTROPHILS # 5.2 10^3/uL (1.5-8.5); NEUTROPHILS % 64.1 % (36.0-66.0); PLATELET COUNT, AUTOMATED 384 10^3/uL (150-450); RED BLOOD COUNT 4.26 10^6/uL (4.00-5.40); WHITE BLOOD COUNT 8.1 10^3/uL (4.0-10.0)
[2023-10-26 18:07] LABS: ALBUMIN 3.7 G/DL (3.2-5.2); ALKALINE PHOSPHATASE 82 U/L (46-116); ALT/SGPT 16 U/L (7.0-40); AST/SGOT 12 U/L (<34); BILIRUBIN,TOTAL 0.3 MG/DL (0.3-1.2); BLOOD UREA NITROGEN 17 MG/DL (9-23); CALCIUM LEVEL 10.4 MG/DL (8.3-10.6); CARBON DIOXIDE LEVEL 31 MMOL/L (20-31); CHLORIDE LEVEL 102 MMOL/L (98-107); CHOLESTEROL LEVEL 166 MG/DL (<200); CHOLESTEROL RISK RATIO 2.88 (<5); CREATININE FOR GFR 0.56 MG/DL (0.55-1.30); GLOMERULAR FILTRATION RATE > 60.0 (>39); GLUCOSE, FASTING 95 MG/DL (74-106); HDL CHOLESTEROL 57.6 MG/DL (>40); LDL CHOLESTEROL 89.8 MG/DL (<100); NON-HDL-C 108.4 MG/DL; POTASSIUM SERUM 4.6 MMOL/L (3.5-5.1); SODIUM LEVEL 136 MMOL/L (136-145); TOTAL PROTEIN 7.1 G/DL (5.7-8.2); TRIGLYCERIDES LEVEL 93 MG/DL (<150)
[2023-10-26 18:08] LABS: FREE T4 1.35 NG/DL (0.89-1.76); THYROID STIMULATING HORMONE 1.367 uIU/ML (0.55-4.78); TOTAL 25(OH) VITAMIN D 106.1 NG/ML (20.0-100.0)
== END ==
LOC: M SFHCADAM 14:03
PROVIDERS: ATTEND Physician Assistant
DX: R42 Dizziness and giddiness (principal); R06.02 Shortness of breath; R00.0 Tachycardia, unspecified; I10 Essential (primary) hypertension; G45.9 Transient cerebral ischemic attack, unspecified; S22.040D Wedge compression fracture of fourth thoracic vertebra, subsequent encounter for fracture with routine healing; Z79.899 Other long term (current) drug therapy

== ENCOUNTER → 2023-12-06 | Outpatient (CLI) | payer MEDICARE | LOC: M WHC 10:06 | PROVIDERS: ATTEND Physician Assistant | DX: M81.0 Age-related osteoporosis without current pathological fracture (principal) ==

== ENCOUNTER → 2024-03-07 | Outpatient (REF) | payer MEDICARE, MEDICAID | LOC: M SFHCADAM 10:10 | PROVIDERS: ATTEND Physician Assistant | DX: E67.3 Hypervitaminosis D (principal) ==

== ENCOUNTER → 2024-03-15 | Outpatient (REF) | payer MEDICARE, MEDICAID ==
[2024-03-15 15:00] LABS: ALBUMIN 3.7 G/DL (3.2-5.2); BLOOD UREA NITROGEN 15 MG/DL (9-23); CALCIUM LEVEL 10.4 MG/DL (8.3-10.6); CARBON DIOXIDE LEVEL 34 MMOL/L (20-31); CHLORIDE LEVEL 104 MMOL/L (98-107); CREATININE FOR GFR 0.63 MG/DL (0.55-1.30); GLOMERULAR FILTRATION RATE > 60.0 (>39); GLUCOSE, FASTING 97 MG/DL (74-106); PHOSPHORUS LEVEL 3.4 MG/DL (2.4-5.1); POTASSIUM SERUM 4.9 MMOL/L (3.5-5.1); SODIUM LEVEL 141 MMOL/L (136-145)
== END ==
LOC: M SFHCADAM 08:40
PROVIDERS: ATTEND Physician Assistant Medical
DX: R91.1 Solitary pulmonary nodule (principal)

== ENCOUNTER → 2024-03-20 | Outpatient (CLI) | payer MEDICARE, MEDICAID ==
[~2024-03-20] MED LIST changes: +ISOVUE-370 76% 100ML VIAL As Ordered ONE
== END ==
LOC: M RAD 14:22
PROVIDERS: ATTEND Physician Assistant
DX: R91.1 Solitary pulmonary nodule (principal)
CPT/HCPCS: 71260; Q9967

== ENCOUNTER → 2024-08-01 | Outpatient (CLI) | payer MEDICARE, MEDICAID ==
[~2024-08-01] MED LIST changes: -ISOVUE-370 76% 100ML VIAL As Ordered ONE
== END ==
LOC: M PLAIMG 11:36
PROVIDERS: ATTEND Physician Assistant
DX: R91.8 Other nonspecific abnormal finding of lung field (principal)

== ENCOUNTER → 2024-08-10 | Outpatient (REF) | payer MEDICARE, MEDICAID ==
[2024-08-10 13:39] LABS: BASO % 0.2 % (0.0-1.0); EOS % 0.1 % (0.0-3.0); HEMATOCRIT 40.3 % (36.0-47.0); HEMOGLOBIN 12.9 g/dl (12.0-15.5); LYMPH # 0.7 10^3/uL (1.5-5.0); LYMPH % 5.5 % (24.0-44.0); MEAN CORPUSCULAR HEMOGLOBIN 30.1 pg (27.0-33.0); MEAN CORPUSCULAR VOLUME 94.2 fl (80.0-96.0); MONO # 0.4 10^3/uL (0.0-0.8); MONO % 3.2 % (2.0-8.0); NEUTROPHILS # 11.5 10^3/uL (1.5-8.5); NEUTROPHILS % 90.8 % (36.0-66.0); PLATELET COUNT, AUTOMATED 347 10^3/uL (150-450); RED BLOOD COUNT 4.28 10^6/uL (4.00-5.40); WHITE BLOOD COUNT 12.7 10^3/uL (4.0-10.0)
[2024-08-10 14:01] LABS: ALBUMIN 3.6 G/DL (3.2-5.2); ALKALINE PHOSPHATASE 84 U/L (35-104); ALT/SGPT 19 U/L (7.0-40); AST/SGOT 15 U/L (<34); BILIRUBIN,TOTAL 0.2 MG/DL (0.3-1.2); BLOOD UREA NITROGEN 25 MG/DL (9-23); CALCIUM LEVEL 10.3 MG/DL (8.3-10.6); CARBON DIOXIDE LEVEL 32 MMOL/L (20-31); CHLORIDE LEVEL 102 MMOL/L (98-107); CHOLESTEROL LEVEL 170 MG/DL (<200); CREATININE FOR GFR 0.61 MG/DL (0.55-1.30); GLOMERULAR FILTRATION RATE > 60.0 (>39); GLUCOSE, FASTING 120 MG/DL (74-106); HDL CHOLESTEROL 58.5 MG/DL (>40); LDL CHOLESTEROL 91.9 MG/DL (<100); NON-HDL-C 111.5 MG/DL; POTASSIUM SERUM 4.9 MMOL/L (3.5-5.1); SODIUM LEVEL 138 MMOL/L (136-145); TRIGLYCERIDES LEVEL 98 MG/DL (<150)
== END ==
LOC: M SFHCADAM 10:07
PROVIDERS: ATTEND Physician Assistant
DX: I25.10 Atherosclerotic heart disease of native coronary artery without angina pectoris (principal); R91.1 Solitary pulmonary nodule; J44.1 Chronic obstructive pulmonary disease with (acute) exacerbation; E78.00 Pure hypercholesterolemia, unspecified

== ENCOUNTER → 2024-08-30 | Outpatient (REF) | payer MEDICARE, MEDICAID | LOC: M SFHCADAM 17:33 | PROVIDERS: ATTEND Physician Assistant | DX: J47.9 Bronchiectasis, uncomplicated (principal) ==

== ENCOUNTER → 2024-09-03 | Outpatient (CLI) | payer MEDICARE, MEDICAID | LOC: M PLARAD 07:20 | PROVIDERS: ATTEND Family Medicine | DX: R91.1 Solitary pulmonary nodule (principal) | CPT/HCPCS: 78815; A9552 ==

== ENCOUNTER → 2024-09-26 | Outpatient (CLI) | payer MEDICARE, MEDICAID | LOC: M WHC 08:10 | PROVIDERS: ATTEND Internal Medicine Critical Care Medicine | DX: C50.911 Malignant neoplasm of unspecified site of right female breast (principal) | CPT/HCPCS: 76642; 77066; G0279 ==

== ENCOUNTER → 2024-10-04 | Outpatient (CLI) | payer MEDICARE, MEDICAID ==
[2024-10-04 14:59] VITALS: TEMP 98.8
[2024-10-04 15:18] VITALS: BP 128/72; O2SAT 96
== END ==
LOC: M WHCPRO 10:09
PROVIDERS: ATTEND Internal Medicine Critical Care Medicine
DX: N63.41 Unspecified lump in right breast, subareolar (principal); C50.111 Malignant neoplasm of central portion of right female breast

== ENCOUNTER → 2024-11-07 | Outpatient (REF) | payer MEDICARE, MEDICAID ==
[2024-11-07 18:45] LABS: HEMATOCRIT 39.4 % (36.0-47.0); HEMOGLOBIN 12.5 g/dl (12.0-15.5); MEAN CORPUSCULAR HEMOGLOBIN 30.2 pg (27.0-33.0); MEAN CORPUSCULAR HGB CONC 31.7 g/dl (32.0-36.5); MEAN CORPUSCULAR VOLUME 95.2 fl (80.0-96.0); PLATELET COUNT, AUTOMATED 377 10^3/uL (150-450); RED BLOOD COUNT 4.14 10^6/uL (4.00-5.40); WHITE BLOOD COUNT 8.6 10^3/uL (4.0-10.0)
[2024-11-07 19:18] LABS: ALBUMIN 3.6 G/DL (3.2-5.2); ALKALINE PHOSPHATASE 82 U/L (35-104); ALT/SGPT 23 U/L (7.0-40); AST/SGOT 16 U/L (<34); BILIRUBIN,TOTAL 0.3 MG/DL (0.3-1.2); BLOOD UREA NITROGEN 31 MG/DL (9-23); CALCIUM LEVEL 9.8 MG/DL (8.3-10.6); CARBON DIOXIDE LEVEL 34 MMOL/L (20-31); CHLORIDE LEVEL 103 MMOL/L (98-107); CREATININE FOR GFR 0.55 MG/DL (0.55-1.30); GLOMERULAR FILTRATION RATE > 60.0 (>39); GLUCOSE, FASTING 106 MG/DL (74-106); POTASSIUM SERUM 5.6 MMOL/L (3.5-5.1); SODIUM LEVEL 139 MMOL/L (136-145)
== END ==
LOC: M SFHCADAM 14:19
PROVIDERS: ATTEND Physician Assistant
DX: Z01.818 Encounter for other preprocedural examination (principal)

== ENCOUNTER → 2024-11-07 | Outpatient (CLI) | payer MEDICARE, MEDICAID | LOC: M ADAMS 14:31 | PROVIDERS: ATTEND Physician Assistant | DX: Z01.818 Encounter for other preprocedural examination (principal) ==

== ENCOUNTER → 2024-11-08 | Outpatient (REF) | payer MEDICARE, MEDICAID | LOC: M SFHCADAM 09:48 | PROVIDERS: ATTEND Physician Assistant | DX: E87.5 Hyperkalemia (principal) ==

== ENCOUNTER → 2024-12-27 | Outpatient (CLI) | payer MEDICARE, MEDICAID | LOC: M PLAIMG 10:23 | PROVIDERS: ATTEND Internal Medicine Critical Care Medicine | DX: R91.8 Other nonspecific abnormal finding of lung field (principal) ==

== ENCOUNTER → 2025-01-29 | Outpatient (REF) | payer MEDICARE, MEDICAID ==
[2025-01-30 13:49] LABS: THYROID STIMULATING HORMONE 1.484 uIU/ML (0.55-4.78)
[2025-01-30 13:50] LABS: VITAMIN B12 LEVEL 882 PG/ML (211-911)
[2025-01-30 13:53] LABS: FOLATE > 24.0 NG/ML (>5.4)
== END ==
LOC: M SFHCADAM 15:28
PROVIDERS: ATTEND Physician Assistant
DX: H53.2 Diplopia (principal); R42 Dizziness and giddiness; R47.01 Aphasia; R41.3 Other amnesia

== ENCOUNTER 2025-04-22 10:56 | Emergency (ER) | payer MEDICARE, MEDICAID ==
[~2025-04-22] VITALS: Ht 165.1 cm; Wt 57.0 kg
[~2025-04-22 10:56] MED LIST changes: +PRAV10TA PO; -PRAV10TA3; -PRAV10TA4 PO; +PRAV10TA43
[2025-04-22] MEDS ORDERED: MECL-86 PO (11:15)
[2025-04-22] MEDS ORDERED: FLUT1BLS8 INH (11:15)
[2025-04-22] MEDS ORDERED: TAMO20TA8 PO (11:15)
[2025-04-22 12:28] LABS: BASO # 0.0 10^3/uL (0.0-0.2); BASO % 0.7 % (0.0-1.0); EOS # 0.2 10^3/uL (0.0-0.5); EOS % 2.8 % (0.0-3.0); LYMPH # 1.2 10^3/uL (1.5-5.0); LYMPH % 20.2 % (24.0-44.0); MONO # 0.5 10^3/uL (0.0-0.8); MONO % 8.5 % (2.0-8.0); NEUTROPHILS # 4.2 10^3/uL (1.5-8.5); NEUTROPHILS % 67.8 % (36.0-66.0); PLATELET COUNT, AUTOMATED 307 10^3/uL (150-450)
[2025-04-22 12:40] LABS: INR 0.87
[2025-04-22 12:49] LABS: CK-MB VALUE MASS < 1.0 NG/ML (<3.6)
[2025-04-22 12:51] LABS: CALCIUM LEVEL 9.0 MG/DL (8.3-10.6); CARBON DIOXIDE LEVEL 27 MMOL/L (20-31); CHLORIDE LEVEL 104 MMOL/L (98-107); CPK CREATINE PHOSPHOKINASE 25 U/L (34-145); CREATININE FOR GFR 0.61 MG/DL (0.55-1.30); GLOMERULAR FILTRATION RATE > 90.0 (>39); POTASSIUM SERUM 4.5 MMOL/L (3.5-5.1); SODIUM LEVEL 143 MMOL/L (136-145)
[2025-04-22] MEDS ORDERED: LOVA10TA PO (13:41)
[2025-04-22] MEDS ORDERED: ALBU8.5H INH (13:41)
[2025-04-22] MEDS ORDERED: HOME MED LIST COMPLETE! XX SCH (13:45)
[2025-04-22] MEDS ORDERED: MAGN400T2 PO (13:47)
[2025-04-22] MEDS ORDERED: RA B1TAB2 PO (13:48)
[2025-04-22] MEDS: MECLIZINE 25 MG TABLET PO ONE (13:51)
[2025-04-22 16:16] VITALS: BP 140/68; TEMP 97; O2SAT 95
== END 2025-04-22 16:49 | disposition home or self-care (01) ==
LOC: M ED 10:56
DX: H81.4 Vertigo of central origin (principal); I10 Essential (primary) hypertension; K21.9 Gastro-esophageal reflux disease without esophagitis; Z88.1 Allergy status to other antibiotic agents; Z88.8 Allergy status to other drugs, medicaments and biological substances; Z79.52 Long term (current) use of systemic steroids; Z79.1 Long term (current) use of non-steroidal anti-inflammatories (NSAID); Z79.899 Other long term (current) drug therapy

== ENCOUNTER → 2025-06-07 | Outpatient (CLI) | payer MEDICARE, MEDICAID ==
[~2025-06-07] MED LIST changes: +ALBU8.5H INH; +FLUT1BLS8 INH; +LOVA10TA PO; +MAGN400T2 PO; +MECL-86 PO; +RA B1TAB2 PO; +TAMO20TA8 PO
== END ==
LOC: M PLAIMG 12:50
PROVIDERS: ATTEND Physician Assistant
DX: S22.040A Wedge compression fracture of fourth thoracic vertebra, initial encounter for closed fracture (principal); M51.26 Other intervertebral disc displacement, lumbar region; M51.34 Other intervertebral disc degeneration, thoracic region; D18.09 Hemangioma of other sites; M47.816 Spondylosis without myelopathy or radiculopathy, lumbar region

== ENCOUNTER → 2025-07-11 | Outpatient (CLI) | payer MEDICARE, MEDICAID | LOC: M PLAIMG 08:38 | PROVIDERS: ATTEND Internal Medicine Critical Care Medicine | DX: R91.8 Other nonspecific abnormal finding of lung field (principal) ==

== ENCOUNTER → 2025-09-17 | Outpatient (REF) | payer MEDICARE, MEDICAID ==
[~2025-09-17] MED LIST changes: +EQL50TAB2 PO; -RA B1TAB2 PO
[2025-09-17 18:36] LABS: APPEARANCE, URINE HAZY (CLEAR); BACTERIA, URINE AUTO 1+ (NEGATIVE); BILIRUBIN, URINE AUTO NEGATIVE (NEGATIVE); BLOOD, URINE BLOOD NEGATIVE (NEGATIVE); GLUCOSE, URINE (UA) AUTO NEGATIVE (NEGATIVE); KETONE, URINE AUTO NEGATIVE (NEGATIVE); LEUKOCYTE ESTERASE, URINE AUTO NEGATIVE (NEGATIVE); MUCUS, URINE SMALL (NEGATIVE); NITRITE, URINE AUTO NEGATIVE (NEGATIVE); PROTEIN, URINE AUTO NEGATIVE (NEGATIVE); RBC, URINE AUTO 2 /HPF (0-3); SPECIFIC GRAVITY URINE AUTO 1.026 (1.002-1.035); SQUAMOUS EPITHELIAL CELL UR AU 6 /HPF (0-6); UROBILINOGEN, URINE AUTO 0.2 mg/dL (0.0-2.0); WBC, URINE AUTO 2 /HPF (0-3); YEAST LIKE CELL URINE AUTO SMALL
== END ==
LOC: M SFHCADAM 12:39
PROVIDERS: ATTEND Physician Assistant
DX: R30.0 Dysuria (principal)

== ENCOUNTER → 2025-09-24 | Outpatient (CLI) | payer MEDICARE, MEDICAID ==
[~2025-09-24] MED LIST changes: +ALBU2.5V10 INH; +ALEV220T22 PO
== END ==
LOC: M RAD 14:02
PROVIDERS: ATTEND Physician Assistant
DX: R13.10 Dysphagia, unspecified (principal)

== ENCOUNTER → 2025-09-24 | Outpatient (CLI) | payer MEDICARE, MEDICAID ==
[~2025-09-24] MED LIST changes: +BARIUM SULFATE 700 MG TABLET As Ordered ONE; +E-Z-HD 98% w/w 340 GM SUSP BTL As Ordered ONE; +E-Z-PAQUE 96% w/w SUSP 176 GM BTL As Ordered ONE; +VARIBAR NECTAR 40% w/v 240ML SUSP BTL As Ordered ONE; +VARIBAR PUDDING 40% w/v 230ML TUBE As Ordered ONE
== END ==
LOC: M RAD 14:00
PROVIDERS: ATTEND Physician Assistant
DX: R13.10 Dysphagia, unspecified (principal)